=== PATIENT | female | born 1975 | race Caucasian/White ===

== ENCOUNTER 2024-04-29 00:18 | Emergency (ER) | payer OTHER ==
[~2024-04-29] VITALS: Ht 157.5 cm; Wt 90.9 kg
[2024-04-29] MEDS ORDERED: Ondansetron 4 MG/2 ML VIAL IV ONE (00:45)
[2024-04-29] MEDS ORDERED: Morphine 4 MG/ML VIAL IV ONE (00:45)
[2024-04-29 00:49] LABS: BASO # 0.1 K/mm3 (0.0-0.2); BASO % 0.4 % (0.0-2.0); EOS # 0.1 K/mm3 (0.0-0.7); EOS % 0.4 % (0.0-4.0); GRAN # 12.6 K/mm3 (1.4-6.5); GRAN % 77.6 % (42.2-75.2); HEMATOCRIT 44.1 % (37.0-47.0); LYMPH # 2.3 K/mm3 (1.2-3.4); LYMPH % 14.3 % (20.0-51.0); MEAN CELL VOLUME 84 fl (80.0-100.0); MEAN CORPUSCULAR HEMOGLOBIN 27 pg (27-31); MEAN CORPUSCULAR HGB CONC 32 g/dl (33.0-37.0); MEAN PLATELET VOLUME 9.3 fl (7.4-10.4); MONO # 1.1 K/mm3 (0.1-0.6); MONO % 6.9 % (1.7-9.3); PLATELET COUNT 453 K/mm3 (130-400); RED BLOOD COUNT 5.28 M/mm3 (4.10-5.30); REDCELL DISTRIBUTION WIDTH-CV 13.8 % (11.5-14.5)
[2024-04-29 01:14] LABS: BILIRUBIN,TOTAL 0.3 mg/dL (0.2-1.2); CALCIUM 10.3 mg/dL (8.4-10.2); CREATININE, serum 2.46 mg/dL (0.57-1.11); POTASSIUM 4.7 mEq/L (3.5-4.5); TOTAL PROTEIN 8.3 g/dl (6.2-8.1)
[2024-04-29] MEDS ORDERED: Morphine 10 MG/ML VIAL IM ONE (01:30)
[2024-04-29 02:20] VITALS: BP 134/94; TEMP 98.9
[2024-04-29 02:24] LABS: PH 5.5 (5.0-8.5); URINE APPEARANCE CLEAR (CLEAR/HAZY); URINE BLOOD 1+ (NEGATIVE); URINE COLOR YELLOW (YELLOW); URINE GLUCOSE 3+ (NEGATIVE); URINE KETONE NEGATIVE (NEGATIVE); URINE NITRATE NEGATIVE (NEGATIVE); URINE PROTEIN(semi-quant) 3+ (NEGATIVE); URINE UROBILINOGEN 0.2 E.U/dL (0.2-1.0)
[2024-04-29 02:27] LABS: COLLECTION METHOD CLEAN CATCH
[2024-04-29] MEDS ORDERED: CEPHALEXIN500 M1 PO (02:36)
[2024-04-29] MEDS ORDERED: cefTRIAXone 1 G,Lidocaine PF 1% 2.1 ML IM ONE (02:45)
[2024-04-29 02:53] VITALS: PULSE 110
== END 2024-04-29 02:54 | disposition home or self-care (01) ==
LOC: COL.ER 00:18
PROVIDERS: Emergency Medicine
DX: N39.0 Urinary tract infection, site not specified (principal); Z87.442 Personal history of urinary calculi; Z88.1 Allergy status to other antibiotic agents
CPT/HCPCS: J0696; J2270

== ENCOUNTER 2024-05-16 12:17 | Inpatient (IN) | payer OTHER ==
[~2024-05-16] VITALS: Ht 157.5 cm; Wt 92.0 kg
[~2024-05-16 12:17] MED LIST: CEPHALEXIN500 M1 PO
[2024-05-16] MEDS ORDERED: fentaNYL 50 MCG/ML 2 ML VIAL IV ONE ×2 (13:15→14:45)
[2024-05-16] MEDS ORDERED: NS 1,000 ML IV ONE ×2 (13:15→14:45)
[2024-05-16 13:31] LABS: BASO % 0.2 % (0.0-2.0); GRAN # 11.6 K/mm3 (1.4-6.5); GRAN % 81.6 % (42.2-75.2); HEMATOCRIT 46.1 % (37.0-47.0); LYMPH % 13.7 % (20.0-51.0); MEAN CELL VOLUME 84 fl (80.0-100.0); MEAN CORPUSCULAR HEMOGLOBIN 27 pg (27-31); MEAN CORPUSCULAR HGB CONC 33 g/dl (33.0-37.0); MEAN PLATELET VOLUME 9.8 fl (7.4-10.4); MONO # 0.6 K/mm3 (0.1-0.6); MONO % 4.1 % (1.7-9.3); PLATELET COUNT 445 K/mm3 (130-400); RED BLOOD COUNT 5.48 M/mm3 (4.10-5.30); REDCELL DISTRIBUTION WIDTH-CV 14.3 % (11.5-14.5)
[2024-05-16 13:45] LABS: ALBUMIN 4.3 g/dL (3.5-5.0); BILIRUBIN,TOTAL 0.4 mg/dL (0.2-1.2); CALCIUM 10.6 mg/dL (8.4-10.2); CREATININE, serum 2.18 mg/dL (0.57-1.11); POTASSIUM 4.8 mEq/L (3.5-4.5); TOTAL PROTEIN 8.2 g/dl (6.2-8.1)
[2024-05-16 14:04] LABS: THYROID STIMULATING HORMONE 1.529 uIU/mL (0.350-4.940); TROPONIN-I 0.012 ng/mL (0.00-0.033)
[2024-05-16 14:06] LABS: COLLECTION METHOD CLEAN CATCH
[2024-05-16 14:14] LABS: PH 7.5 (5.0-8.5); URINE APPEARANCE CLEAR (CLEAR/HAZY); URINE BLOOD 1+ (NEGATIVE); URINE COLOR YELLOW (YELLOW); URINE GLUCOSE 3+ (NEGATIVE); URINE KETONE 2+ (NEGATIVE); URINE NITRATE NEGATIVE (NEGATIVE); URINE PROTEIN(semi-quant) 3+ (NEGATIVE); URINE UROBILINOGEN 0.2 E.U/dL (0.2-1.0)
[2024-05-16 16:19] LABS: CALCIUM 9.2 mg/dL (8.4-10.2); CREATININE, serum 1.99 mg/dL (0.57-1.11); POTASSIUM 4.4 mEq/L (3.5-4.5)
[2024-05-16] MEDS ORDERED: fentaNYL 50 MCG/ML 2 ML VIAL IV PRN (16:45)
[2024-05-16] MEDS ORDERED: LR 1,000 ML IV SCH (16:45)
[2024-05-16] MEDS ORDERED: Acetaminophen 325 MG TAB PO PRN (16:45)
[2024-05-16] MEDS ORDERED: Ondansetron 4 MG/2 ML VIAL IV PRN (16:45)
[2024-05-16] MEDS ORDERED: Dextrose (Glucose) 15 GM (4 x 3.75 GM) Chewable TABLET PACK PO PRN (17:15)
[2024-05-16] MEDS ORDERED: Dextrose 50% Water 25 GM/50 ML SYRINGE IV PRN (17:15)
[2024-05-16] MEDS ORDERED: Glucagon 1 MG VIAL IM PRN (17:15)
[2024-05-16] MEDS ORDERED: Insulin Lispro (HumaLOG) SQ SCH (18:00)
[2024-05-16 18:07] VITALS: BP 119/82; PULSE 115; TEMP 98.4
[2024-05-16] MEDS ORDERED: TOPROL XL100 MG PO (18:21)
[2024-05-16] MEDS ORDERED: PRINIVIL5 MG PO (18:22)
[2024-05-16] MEDS ORDERED: XYZAL5 MG PO (18:23)
[2024-05-16] MEDS ORDERED: SINGULAIR 110 MG/TAB PO (18:24)
[2024-05-16] MEDS ORDERED: BENADRYL25 M2 PO (18:24)
[2024-05-16] MEDS ORDERED: XOLAIR75 MG/0.5 SQ (18:26)
[2024-05-16] MEDS ORDERED: HUMIRA PEN40 MG/0.4 SQ (18:27)
[2024-05-16] MEDS ORDERED: OZEMPIC2 MG/0.75 SQ (18:27)
[2024-05-16] MEDS ORDERED: JARDIANCE10 PO (18:28)
[2024-05-16] MEDS ORDERED: CRESTOR5 MG PO (18:28)
[2024-05-16] MEDS ORDERED: TRESIBA FL100 UNIT/1 SQ (18:29)
[2024-05-16] MEDS ORDERED: SYNTHROID 0.0.025 MG PO (18:29)
[2024-05-16] MEDS ORDERED: LEXAPRO20 MG PO (18:30)
[2024-05-16] MEDS ORDERED: SEROQUEL 1100 MG/TAB PO (18:30)
[2024-05-16] MEDS ORDERED: XOPENEX 1.1.25 MG/3 IH (18:32)
[2024-05-16] MEDS ORDERED: EPIPEN 2-PAK1 MG/ML IM (18:32)
[2024-05-16] MEDS ORDERED: PROAIR HFA0.09 MG/AC IH (18:32)
[2024-05-16 18:43] VITALS: BP_SYST 119
--- NOTE | 2024-05-16 18:45 | NUR ---
Patient up to medical unit from ED, pt awake, alert and oriented. Pt states her pain is currently controlled well, denies nausea at this time but had nausea and episodes of emesis this AM. Family at the bedside. Med rec complete, pt oriented to the room. Bed in lowest position with call light within reach.
[2024-05-16 19:40] VITALS: BP 151/97; PULSE 111; TEMP 98.3
--- NOTE | 2024-05-16 20:03 | NUR ---
PT COMPLAINING OF NAUSEA THAT IS NOT IMPROVING WITH ZOFRAN. HOSPITALIST NOTIFIED. NEW ORDERS RECIEVED AT THIS TIME.
[2024-05-16 22:29] VITALS: BP_SYST 151
--- NOTE | 2024-05-16 23:27 | NUR ---
This nurse took over patient care at approximately 2145. Patient is alert and oriented, and able to make needs known. Patient having nausea/vomiting at 2300. Given PRN Compazine. Complained of level 5 pain and climbing. Given PRN Fentanyl as requested. Denies SOB and dyspnea. LS CTA. HRR. On telemetry, sinus tachycardia. BSAx4. No edema. Reports urine is clear and yellow. Voices no further questions, needs, or concerns at this time. In bed with call light within reach.
[2024-05-16 23:32] VITALS: BP 125/104; BP 152/104; PULSE 105; TEMP 98.1
[2024-05-17] VITALS (12 sets, daily range): BP systolic 136–175; BP diastolic 92–119; PULSE 81–105; TEMP 98.2–99.4
--- NOTE | 2024-05-17 05:49 | NUR ---
Patient denies having pain, discomfort, and nausea at this time. Continues on IV fluids per orders. Voices no questions, needs, or concerns at this time. In bed with call light within reach.
[2024-05-17 06:41] LABS: BASO # 0.1 K/mm3 (0.0-0.2); BASO % 0.5 % (0.0-2.0); EOS % 0.3 % (0.0-4.0); GRAN # 6.4 K/mm3 (1.4-6.5); GRAN % 57.1 % (42.2-75.2); LYMPH % 35.3 % (20.0-51.0); MEAN CELL VOLUME 85 fl (80.0-100.0); MEAN CORPUSCULAR HGB CONC 32 g/dl (33.0-37.0); MEAN PLATELET VOLUME 9.6 fl (7.4-10.4); MONO # 0.7 K/mm3 (0.1-0.6); MONO % 6.6 % (1.7-9.3); PLATELET COUNT 368 K/mm3 (130-400); RED BLOOD COUNT 4.24 M/mm3 (4.10-5.30); REDCELL DISTRIBUTION WIDTH-CV 14.6 % (11.5-14.5)
[2024-05-17 06:42] LABS: HEMATOCRIT 35.9 % (37.0-47.0); HEMOGLOBIN 11.4 g/dl (12.5-16.0); MEAN CORPUSCULAR HEMOGLOBIN 27 pg (27-31)
[2024-05-17 07:02] LABS: CALCIUM 8.7 mg/dL (8.4-10.2); CREATININE, serum 1.74 mg/dL (0.57-1.11); POTASSIUM 4.2 mEq/L (3.5-4.5)
--- NOTE | 2024-05-17 08:35 | NUR ---
Pt calls, upon entering room patient is found sitting up in chair, eating breakfast. Reports nausea after taking a couple bites of her biscuit. Also reporting pain 4/10 left flank. Fentanyl and Zofran administered. Pt now in bed. Denies any other needs at this time.
[2024-05-17] MEDS ORDERED: fentaNYL 50 MCG/ML 2 ML VIAL IV PRN (09:00)
[2024-05-17] MEDS ORDERED: Cetirizine 10 MG TAB PO SCH (09:01)
[2024-05-17] MEDS ORDERED: Escitalopram 10 MG TAB PO SCH (09:02)
--- NOTE | 2024-05-17 09:10 | NUR ---
Patient calls to request Compazine, reporting Zofran isn't working. Compazine administered IVP. Pt resting in bed, denies any other needs at this time.
[2024-05-17] MEDS ORDERED: Albuterol 0.083% Neb Soln 2.5 MG/3 ML UD IH PRN (09:15)
[2024-05-17] MEDS ORDERED: Prochlorperazine 10 MG TAB PO PRN (09:15)
--- NOTE | 2024-05-17 10:37 | NUR ---
Pt calls to report that she is "dry heaving." Dr. Jeff notified- order rec'd for Reglan. IV site infilltrated. Pt difficult stick. Called BEATA Wright from [facility] for IV start.
--- NOTE | 2024-05-17 11:19 | NUR ---
#20g placed to RAC by [facility]. IVF restarted. Reglan administered IVP for c/o nausea.
--- NOTE | 2024-05-17 11:27 | NUR ---
hops farmworker met with patient to discuss discharge planning. Patient lives in [place] with her , Chato, P# [phone]. PCP is Dr. Salazar, Pharmacy for discharge medications would be [facility] in [place]. No issues affording medications. Insurance is [employer]. No DPOA-HC and does not wish to complete one at this time. DME is a continuous glucose monitor. Patient reports to be independenet with ADLS. Patient is able to transport herself to and from appointments. Patient plans to return home at time of discharge. Discharge plan: Home
--- NOTE | 2024-05-17 12:53 | NUR ---
Fentanyl administered IVP for c/o left flank pain, rating pain 4/10. Patient reports nausea is now mild. Resting in bed. Denies any other needs at this time.
--- NOTE | 2024-05-17 19:49 | NUR ---
Pt reports relief of left flank pain with fentanyl. Denies nausea since Reglan was administered. Able to eat a few saltine crakers and drink a sprite zero without c/o nausea. Refuses meals though. Independent in room. Denies needs at this time. Bedside report given to BEATA Block.
[2024-05-17] MEDS ORDERED: Insulin Glargine-ygfn (Lantus) SQ SCH (21:00)
[2024-05-17] MEDS ORDERED: Montelukast 10 MG TAB PO SCH (21:00)
[2024-05-17] MEDS ORDERED: QUEtiapine 100 MG TAB PO SCH (21:00)
[2024-05-17] MEDS ORDERED: Atorvastatin 10 MG TAB PO SCH (21:00)
[2024-05-17] MEDS ORDERED: hydrALAZINE 20 MG/ML 1 ML VIAL IV PRN (22:00)
[2024-05-18 01:10] VITALS: BP_SYST 170
[2024-05-18 03:30] VITALS: BP 152/96; PULSE 111; TEMP 98.8
[2024-05-18 04:10] VITALS: BP_SYST 152
[2024-05-18 06:32] LABS: BASO # 0.1 K/mm3 (0.0-0.2); BASO % 0.5 % (0.0-2.0); EOS % 0.2 % (0.0-4.0); GRAN # 6.3 K/mm3 (1.4-6.5); HEMATOCRIT 38.3 % (37.0-47.0); HEMOGLOBIN 12.6 g/dl (12.5-16.0); LYMPH # 2.7 K/mm3 (1.2-3.4); LYMPH % 27.4 % (20.0-51.0); MEAN CELL VOLUME 82 fl (80.0-100.0); MEAN CORPUSCULAR HEMOGLOBIN 27 pg (27-31); MEAN CORPUSCULAR HGB CONC 33 g/dl (33.0-37.0); MEAN PLATELET VOLUME 9.4 fl (7.4-10.4); MONO # 0.7 K/mm3 (0.1-0.6); MONO % 7.5 % (1.7-9.3); PLATELET COUNT 359 K/mm3 (130-400); RED BLOOD COUNT 4.65 M/mm3 (4.10-5.30); REDCELL DISTRIBUTION WIDTH-CV 14.2 % (11.5-14.5)
[2024-05-18 06:41] LABS: CALCIUM 8.9 mg/dL (8.4-10.2); CREATININE, serum 1.58 mg/dL (0.57-1.11); POTASSIUM 3.9 mEq/L (3.5-4.5)
[2024-05-18 07:38] VITALS: BP 161/97; PULSE 103; TEMP 98.5
[2024-05-18 09:00] VITALS: BP_SYST 161
--- NOTE | 2024-05-18 09:20 | NUR ---
PATIENT ALERT AND ORIENTED X4. PATIENT DENIES PAIN AT THIS TIME. PATIENT ON ROOM AIR. EPISODE OF ELEVATED BLOOD PRESSURE. MORNING MEDICATION GIVEN. PATIENT IV SITE COVERED TO SHOWER THIS MORNING. PATIENT DENIES ANY OTHER NEEDS AT THIS TIME. [facility] BED AT LOWEST POSITION.
[2024-05-18] MEDS ORDERED: Lisinopril 5 MG TAB PO ONE (09:45)
--- NOTE | 2024-05-18 11:56 | NUR ---
PATIENT DISCHARGE MEDICATION GIVEN. PATIENT VERBALIZED UNDERSTANDING. PATIENT IV REMOVED FROM RIGHT AC. PATIENT ESCORTED OUT OF UNIT BY PCT.
== END 2024-05-18 11:58 | disposition home or self-care (01) | DRG 683 ==
LOC: COL.ER 12:17 → MEDICAL 15:09
PROVIDERS: Family Medicine; Physician Assistant; ADMIT Internal Medicine
DX: N17.9 Acute kidney failure, unspecified (principal); E87.20 Acidosis, unspecified; R65.10 Systemic inflammatory response syndrome (SIRS) of non-infectious origin without acute organ dysfunction; M06.9 Rheumatoid arthritis, unspecified; F41.9 Anxiety disorder, unspecified; E03.9 Hypothyroidism, unspecified; J45.909 Unspecified asthma, uncomplicated; I16.0 Hypertensive urgency; E11.22 Type 2 diabetes mellitus with diabetic chronic kidney disease; I12.9 Hypertensive chronic kidney disease with stage 1 through stage 4 chronic kidney disease, or unspecified chronic kidney disease; N18.9 Chronic kidney disease, unspecified; E83.52 Hypercalcemia; E11.65 Type 2 diabetes mellitus with hyperglycemia; E86.0 Dehydration
CPT/HCPCS: J0360; J0780; J1815; J1920; J2405; J2765; J3010; J7030; J7120